=== PATIENT | female | born 1945 | race Caucasian/White ===

== ENCOUNTER 2016-03-24 20:30 | Emergency (ER) | payer MEDICARE, BC ==
[2015-09-01 10:16] VITALS: BMI 33.5
[~2016-03-24 20:30] MED LIST: HCTZ25 MG PO; LIPITOR10 MG PO
[2016-03-24 21:35] LABS: ALBUMIN 4.1 g/dL (3.4-5.0); ALKALINE PHOSPHATASE 93 U/L (46-116); ALT (SGPT) 53 U/L (10-68); BILIRUBIN - TOTAL 0.36 mg/dL (0.2-1.3); CALC OSMOLALITY 281 mosm/kg (275-300); CALCIUM 9.3 mg/dL (8.5-10.1); CARBON DIOXIDE 31.2 mmol/L (21.0-32.0); CHLORIDE - SERUM 100 mmol/L (98-107); CREATININE - SERUM 0.8 mg/dL (0.6-1.3); GLUCOSE 140 mg/dL (74-106); POTASSIUM - SERUM 3.2 mmol/L (3.5-5.1); PROTEIN - SERUM 7.6 g/dL (6.4-8.2); SODIUM 141 mmol/L (136-145); UREA NITROGEN 11 mg/dL (7-18); eGFR NON AFRICAN AMERICAN 75 mL/min (90-120)
== END 2016-03-24 23:40 | disposition home or self-care (01) ==
LOC: D.ER 20:30
PROVIDERS: Family Medicine
DX: I10 Essential (primary) hypertension (principal); R00.0 Tachycardia, unspecified

== ENCOUNTER → 2017-03-18 21:13 | Outpatient (CLI) | payer MEDICARE, BC ==
[2015-09-01 10:16] VITALS: BMI 33.5
== END | disposition home or self-care (01) ==
LOC: D.MAMMO 14:45
DX: N60.01 Solitary cyst of right breast (principal); Z85.3 Personal history of malignant neoplasm of breast; Z90.12 Acquired absence of left breast and nipple

== ENCOUNTER → 2018-09-17 09:00 | Outpatient (CLI) | payer MEDICARE, BC ==
[2015-09-01 10:16] VITALS: BMI 33.5
== END | disposition home or self-care (01) ==
LOC: D.MAMMO 09:00
PROVIDERS: ATTEND Family Medicine
DX: R92.8 Other abnormal and inconclusive findings on diagnostic imaging of breast (principal)

== ENCOUNTER → 2020-06-07 16:06 | Outpatient (CLI) | payer MEDICARE ==
[2015-09-01 10:16] VITALS: BMI 33.5
== END | disposition home or self-care (01) ==
LOC: D.MAMMO 10:30
PROVIDERS: ATTEND Family Medicine
DX: Z85.3 Personal history of malignant neoplasm of breast (principal)